=== PATIENT | female | born 1935 | race Caucasian/White ===

== ENCOUNTER 2018-01-22 10:29 | Emergency (ER) | payer OTHER ==
[~2018-01-22] VITALS: Ht 157.5 cm; Wt 64.5 kg
[2018-01-22 10:38] VITALS: TEMP 36.5; Ht 157.5 cm; Wt 64.5 kg
[2018-01-22] MEDS ORDERED: LEVO88TA3 PO (11:00)
[2018-01-22] MEDS ORDERED: IODI1TAB PO (11:00)
[2018-01-22] MEDS ORDERED: FLUO40CA8 PO (11:00)
[2018-01-22] MEDS ORDERED: MULT-190 PO (11:00)
[2018-01-22] MEDS ORDERED: VITACAP37 PO (11:00)
[2018-01-22] MEDS ORDERED: MULT-513 PO (11:00)
[2018-01-22] MEDS ORDERED: EXLP95 TOP (11:00)
[2018-01-22] MEDS ORDERED: MEMA10TA PO (11:00)
[2018-01-22] MEDS ORDERED: VALA500T60 PO (11:27)
--- NOTE | 2018-01-22 11:30 | EMERGENCY ROOM VISIT NOTE ---
ED Visit Note First contact with patient: 11:07 CHIEF COMPLAINT: "I think I have shingles" HISTORY OF PRESENT ILLNESS: This 82-year-old female patient presents to the emergency department, ambulatory, complaining of a rash on her right back extending around to the right abdomen which started approximately 3 days ago. The patient's states they are on the road traveling from [place]. He noticed the rash 3 days ago, as he places a patch on the patient's skin every day. The patient denies any significant pain, burning, numbness, or tingling. The patient denies fever, chills, nausea, or loss of appetite. They deny any URI symptoms. The patient has tried no OTC medications. The patient states the rash is not extremely bothersome and rates the discomfort as 4/10. No change in food, soap, detergents, or other environmental factors. No new medications. No weakness or numbness. The patient does not recall having shingles in the past, and states she is uncertain whether or not she was previously vaccinated. REVIEW OF SYSTEMS: A 6 system review of systems was completed with positives and pertinent negatives listed in the HPI. ALLERGIES: None MEDICATIONS: Prozac, iodine, Synthroid, Namenda, multivitamin, Ocuvite, Exelon, vitamin E PMH: Dementia, hypothyroidism SOCIAL HISTORY: The patient lives in [place] with family. She denies drug, alcohol, tobacco use. PHYSICAL EXAM: Vital Signs: Reviewed Nurse's notes, vital signs stable. GENERAL: This is an 82-year-old white female, in no acute distress, well- developed, well-nourished. SKIN: Vesicular, erythematous rash on the right flank radiating around to the right abdomen. The rash does not cross the midline. There are no significant or open vesicles, and there are some scabs. No significant tenderness to palpation. Capillary refill less than 2 seconds. HEAD: Normocephalic atraumatic. EARS: External auditory canals clear, tympanic membranes pearly marcus without erythema or effusion bilaterally. EYES: Pupils equal round and reactive to light and accommodation. Conjunctivae without injection, sclerae without icterus. Extraocular movements intact. NOSE: Patent, turbinates without inflammation or discharge. No sinus tenderness. MOUTH: Mucous membranes moist. Tonsils are not enlarged. Pharynx without erythema or exudate. Uvula midline. Airway patent. Tongue does not deviate. NECK: Supple without nuchal rigidity. No lymphadenopathy. No thyromegaly. Cervical spine is nontender. No JVD. HEART: Regular rate and rhythm without murmurs gallops or rubs. LUNGS: Clear to auscultation bilaterally without wheezes, rales or rhonchi. No dullness to percussion. No retractions or accessory muscle use. MUSCULOSKELETAL: No muscle atrophy, erythema, or edema noted. Full range of motion without joint tenderness in all extremities. No tenderness to palpation. Normal gait. Strength 5/5 throughout. NEURO: Patient was alert and oriented to person place and time. Normal sensation to light and sharp touch. No focal neurological deficits. EMERGENCY DEPARTMENT COURSE: The patient was seen and evaluated as above. Rash is consistent with varicella-zoster. The patient will be started on valacyclovir for the infection, however I did discuss with the patient and her the possible minimal benefits of this medication, as the rash has been present for 3 days and the most benefit generally comes from starting the medication within the first 24-48 hours. The patient and her verbalized understanding and were agreeable to starting the medication. I discussed possible side effects and proper use at bedside. All questions answered to patient's satisfaction prior to discharge. The patient was seen and evaluated by Dr. Wolff. Discharge instructions reviewed, the patient was discharged home in good condition. I attest that I have personally reviewed the patient's current medication list. Patient was found to have normal blood pressure on screening and does not require follow-up. Differential diagnosis includes zoster, fungal, scabies, herpes, dermatitis, eczema, cellulitis, abscess, viral, musculoskeletal etiology, hepatic abnormality, malignancy, and others DIAGNOSIS: Varicella-zoster The chart was completed utilizing [employer] Speech voice recognition software. Grammatical errors, random word insertions, pronoun errors, and incomplete sentences are an occasional consequence of this system due to software limitations, ambient noise, and hardware issues. Any formal questions or concerns about the content, text, or information contained within the body of this dictation should be directly addressed to the provider for clarification. Current/Historical Medications Scheduled Fluoxetine (Prozac), 40 MG PO DAILY Iodine (Kelp) (Kelp), 1 TAB PO DAILY Levothyroxine Sodium (Levothyroxine Sodium), 1 TAB PO DAILY Memantine Hcl (Namenda), 10 MG PO BID Multivitamins/Minerals (Mvi With Minerals), 1 TAB PO DAILY Ocuvite Preservision (Ocuvite Preservision), 1 TAB PO DAILY Rivastigmine Tartrate (Exelon), 1 PATCH TOP DAILY Valacyclovir (Valtrex), 1,000 MG PO TID Vitamin E (E-400), 1 CAP PO DAILY Allergies Coded Allergies: Sulfa Antibiotics (Verified Allergy, Unknown, unk, 01/22/18) Vital Signs Date Time Temp Pulse Resp B/P (MAP) Pulse Ox O2 Delivery O2 Flow Rate FiO2 01/22/18 10:38 36.5 62 20 143/80 97 Room Air Departure Information Impression Primary Impression: Varicella zoster Dispostion Home / Self-Care Condition GOOD Prescriptions Valacyclovir (Valtrex) 500 Mg Tab 1000 MG PO TID for 7 Days, #42 TAB Prov: Amie Méndez PA-C 01/22/18 Referrals No Doctor, Assigned (PCP) Patient Instructions My [facility], Shingles Herpes Zoster Additional Instructions You were seen in the emergency department today for a rash. As discussed, this is consistent with shingles, or varicella-zoster. Please take valacyclovir as prescribed. Avoid being around women or people who may be immunocompromised. I do recommend you follow-up with your primary care provider within 1 week. Acetaminophen(Tylenol) may be used for fever or pain. Use 1000mg every six hours as needed. Avoid using more than 3000mg in a 24 hour period. Return to the emergency department for any significantly worsening pain, swelling, numbness or tingling, redness, fever, chills, body aches, or other concerning symptoms.
[2018-01-22 11:42] VITALS: BP 142/71; PULSE 65; O2SAT 97
--- NOTE | 2018-01-22 11:42 | EMERGENCY ROOM VISIT NOTE ---
ED Visit Note First contact with patient: 11:07 Patient was seen by our PA/SYSTEMS SECURITY ANALYST. I was involved in the patient's care and did evaluate the patient myself. I was involved in the care throughout the ER stay. The patient presents with a rash to her right flank and right mid abdomen. This appears to be a herpes zoster rash. Patient is stable for discharge home.
== END 2018-01-22 11:54 | disposition home or self-care (01) ==
LOC: C.EDB 10:32 → C.EDD 11:54
DX: B02.9 Zoster without complications (principal); F03.90 Unspecified dementia, unspecified severity, without behavioral disturbance, psychotic disturbance, mood disturbance, and anxiety; E03.9 Hypothyroidism, unspecified; Z88.2 Allergy status to sulfonamides